=== PATIENT | male | born 1970 | race Caucasian/White ===

== ENCOUNTER 2020-10-27 01:07 | Emergency (ER) | payer OTHER ==
[~2020-10-27] VITALS: Ht 182.8 cm; Wt 99.8 kg
== END 2020-10-27 02:40 | disposition home or self-care (01) ==
LOC: ED 01:07
DX: R22.1 Localized swelling, mass and lump, neck (principal); Z91.041 Radiographic dye allergy status; Y04.2XXA Assault by strike against or bumped into by another person, initial encounter; Y93.89 Activity, other specified; Y92.89 Other specified places as the place of occurrence of the external cause; Y99.8 Other external cause status